=== PATIENT | female | born 1995 | race Caucasian/White ===

== ENCOUNTER 2022-12-26 12:21 | Emergency (ER) | payer OTHER ==
[2022-12-26 12:32] VITALS: BP 129/75; PULSE 98; RESP 18; TEMP 97.2; BMI 21.9
[2022-12-26] MEDS ORDERED: IBUPROFEN 600 MG TABLET (FP) PO ONE ×2 (14:39→15:16)
== END 2022-12-26 16:14 | disposition home or self-care (01) ==
LOC: JER 12:21 → JERFT 12:21
DX: S93.602A Unspecified sprain of left foot, initial encounter (principal); W10.8XXA Fall (on) (from) other stairs and steps, initial encounter
CPT/HCPCS: 73630-TC-LT; 84703; 99284-25